=== PATIENT | male | born 1950 | race Caucasian/White ===

== ENCOUNTER 2019-11-24 15:19 | Inpatient (IN) | payer OTHER, MEDICARE ==
[2019-11-24] MEDS ORDERED: Sodium Chloride 0.9% 10 ML Syringe FLUSH PRN (15:45)
[2019-11-24] MEDS ORDERED: Albuterol/Ipratropium 3.0-0.5 MG/3 ML Neb Soln NEB ONE (15:47)
[2019-11-24] MEDS ORDERED: Acetaminophen 325 MG Tab PO ONE (15:47)
--- NOTE | 2019-11-24 15:55 | EDM.PDOC ---
ED HPI GENERAL MEDICAL PROBLEM - General Chief Complaint: Respiratory Problem Stated Complaint: SOB Time Seen by Provider: 11/24/19 15:35 Source of Information: Reports: Patient, RN Notes Reviewed History Limitations: Reports: No Limitations - History of Present Illness INITIAL COMMENTS - FREE TEXT/NARRATIVE: Patient is a 69-year-old male who presents to the ED for evaluation of his increasing shortness of breath. Patient notes for the past couple days, he has had a productive cough, of some brown/green phlegm. He notes that his right chest does hurt quite a bit from coughing. He is having body aches, fevers/ chills, poor appetite, generalized lethargy, and sleeping very poorly due to the cough. He states he did get a flu shot this year. He has been taking the Mucinex and some aspirin which does help the body aches. Patient states that he comes to the ER for management as he just cannot catch his air. His oxygen level is 85% on room air, and O2 at 2 L were applied at time of triage and this did bring him up to the low 90s. Patient states his primary care provider is normally through the [facility], but he does have a few outside care providers. He used to go to [facility] but she is left this practice. He states he has not seen anyone in a while. Patient states he has a history of asthma and COPD, and does take albuterol and Symbicort on a regular basis. Right Chest Pain Score (Numeric/FACES): 4 - Related Data Allergies Allergy/AdvReac Type Severity Reaction Status Date / Time No Known Allergies Allergy Verified 11/24/19 15:33 Home Meds: Home Meds Albuterol [Proventil HFA] 6.7 gm INH Q2H PRN 10/14/16 [History] Budesonide/Formoterol Fumarate [Symbicort 160-4.5 Mcg Inhaler] 2 puff INH BID [History] Omeprazole 20 mg PO DAILY 11/24/19 [History] amLODIPine Besylate [Amlodipine Besylate] 10 mg PO DAILY 11/24/19 [History] Past Medical History HEENT History: Reports: Impaired Vision Other HEENT History: glasses Cardiovascular History: Reports: Hypertension Respiratory History: Reports: Asthma, COPD Musculoskeletal History: Reports: Back Pain, Chronic Neurological History: Reports: Migraines - Past Surgical History GI Surgical History: Reports: Cholecystectomy Social & Family History - Family History Family Medical History: Noncontributory - Tobacco Use Smoking Status *Q: Current Every Day Smoker Years of Tobacco use: 30 Packs/Tins Daily: 0.2 - Caffeine Use Caffeine Use: Reports: Coffee - Recreational Drug Use Recreational Drug Use: No ED ROS GENERAL - Review of Systems Review Of Systems: See Below Constitutional: Reports: Fever, Chills, Malaise, Fatigue, Decreased Appetite Respiratory: Reports: Shortness of Breath, Cough, Sputum Cardiovascular: Reports: Chest Pain GI/Abdominal: Denies: Abdominal Pain, Constipation, Diarrhea, Nausea, Vomiting Skin: Reports: Change in Color (mildly generalized dusky appearance ) Neurological: Denies: Headache ED EXAM, GENERAL - Physical Exam Exam: See Below Exam Limited By: No Limitations General Appearance: Alert, WD/WN, Mild Distress (pt is talking in broken sentences) Ears: Normal External Exam Nose: Normal Inspection Throat/Mouth: Normal Inspection, Normal Lips, Normal Teeth, Normal Gums, Normal Oropharynx, Normal Voice, No Airway Compromise Head: Atraumatic, Normocephalic Neck: Normal Inspection Respiratory/Chest: Respiratory Distress (mild, speaking in broken sentences), Decreased Breath Sounds (diffuse bilaterally), Retractions (sub sternal retractions, bilaterally) Cardiovascular: Normal Peripheral Pulses, Regular Rate, Rhythm, No Edema, No Murmur Peripheral Pulses: 3+: Radial (L), Radial (R) Extremities: Normal Inspection, Slow Capillary Refill (slightly decreased cap refill) Neurological: Alert, Oriented, Normal Cognition, No Motor/Sensory Deficits Psychiatric: Normal Affect, Normal Mood Skin Exam: Warm, Dry, Intact, No Rash, Cyanosis (generalized mild dusky appearance) Course - Vital Signs Last Recorded V/S: Last Vital Signs Temp 100.1 F 11/24/19 16:43 Pulse 104 H 11/24/19 16:43 Resp 22 H 11/24/19 16:43 BP 124/76 11/24/19 16:43 Pulse Ox 92 L 11/24/19 19:56 - Orders/Labs/Meds Orders: Active Orders 24 hr Category Date Time Status Patient Status [ADT] Routine ADT 11/24/19 19:33 Active Height and Weight [RC] DAILY Care 11/24/19 19:16 Active Intake and Output [RC] QSHIFT Care 11/24/19 19:18 Active Oxygen Therapy [RC] PRN Care 11/24/19 19:16 Active Peripheral IV Care [RC] . DIRECTED Care 11/24/19 15:46 Active Pulse Oximetry [RC] Q4HR Care 11/24/19 19:18 Active RT Aerosol Therapy [RC] ASDIRECTED Care 11/24/19 15:47 Active Up With Assistance [RC] ASDIRECTED Care 11/24/19 19:16 Active VTE/DVT Education [RC] PER UNIT ROUTINE Care 11/24/19 19:16 Active Vital Signs [RC] Q4H Care 11/24/19 19:16 Active OT Evaluation and Treatment [CONS] Routine Cons 11/24/19 19:16 Active PT Evaluation and Treatment [CONS] Routine Cons 11/24/19 19:16 Active Regular Diet [DIET] Diet 11/25/19 Breakfast Active Chest 2V [CR] Stat Exams 11/24/19 15:36 Taken BASIC METABOLIC PANEL,BMP [CHEM] AM Lab 11/25/19 05:11 Ordered CBC WITH AUTO DIFF [HEME] AM Lab 11/25/19 05:11 Ordered MAGNESIUM [CHEM] AM Lab 11/25/19 05:11 Ordered PHOSPHORUS [CHEM] AM Lab 11/25/19 05:11 Ordered PROCALCITONIN [REF] Q48H Lab 11/24/19 15:55 Received PROCALCITONIN [REF] Q48H Lab 11/26/19 19:16 Ordered PROCALCITONIN [REF] Q48H Lab 11/28/19 19:16 Ordered RESPIRATORY PANEL PCR [MREF] Stat Lab 11/24/19 19:16 Ordered STREP PNEUMONIAE ANTIGEN [MREF] Stat Lab 11/24/19 19:16 Ordered Acetaminophen [Tylenol] Med 11/24/19 19:16 Active 650 mg PO Q4H PRN Albuterol/Ipratropium [DuoNeb 3.0-0.5 MG/3 ML] Med 11/24/19 19:30 Active 3 ml NEB Q2H Azithromycin [Zithromax] 500 mg Med 11/24/19 19:30 Active Sodium Chloride 0.9% [Normal Saline] 250 ml IV Q24H Benzonatate [Tessalon Perles] Med 11/24/19 21:00 Active 100 mg PO TID Budesonide [Pulmicort] Med 11/24/19 21:00 Active 0.5 mg NEB BIDRT Enoxaparin [Lovenox] Med 11/25/19 09:00 Active 40 mg SUBCUT DAILY Nicotine [Habitrol] Med 11/25/19 09:00 Active 21 mg TRDERM DAILY Ondansetron [Zofran ODT] Med 11/24/19 19:16 Active 4 mg PO Q6H PRN Ondansetron [Zofran] Med 11/24/19 19:16 Active 4 mg IV Q6H PRN Sodium Chloride 0.9% [Saline Flush] Med 11/24/19 15:45 Active 10 ml FLUSH ASDIRECTED PRN cefTRIAXone [Rocephin] 2 gm Med 11/24/19 20:30 Active Sodium Chloride 0.9% [Normal Saline] 100 ml IV Q24H guaiFENesin [Mucinex] Med 11/24/19 21:00 Active 600 mg PO TID hydrALAZINE [Apresoline] Med 11/24/19 19:43 Active 10 mg IVPUSH Q2H PRN methylPREDNISolone Sod Succ [Solu-MEDROL] Med 11/24/19 22:00 Active 80 mg IVPUSH Q8H Isolation [COMM] Routine Oth 11/24/19 15:37 Ordered Peripheral IV Insertion Adult [OM.PC] Stat Oth 11/24/19 15:45 Ordered Resuscitation Status Routine Resus Stat 11/24/19 19:16 Ordered Medication Orders Acetaminophen (Tylenol) 650 mg PO Q4H PRN PRN Reason: Pain (Mild 1-3)/fever Albuterol/Ipratropium (Duoneb 3.0-0.5 Mg/3 Ml) 3 ml NEB Q2H KURT Stop: 11/25/19 05:31 Last Admin: 11/24/19 19:55 Dose: 3 ml Benzonatate (Tessalon Perles) 100 mg PO TID K[facility]T Budesonide (Pulmicort) 0.5 mg NEB BIDRT [facility] Enoxaparin Sodium (Lovenox) 40 mg SUBCUT DAILY K[facility] Guaifenesin (Mucinex) 600 mg PO TID [facility] Hydralazine HCl (Apresoline) 10 mg IVPUSH Q2H PRN PRN Reason: Hypertension Azithromycin 500 mg/ Sodium (Chloride) 250 mls @ 250 mls/hr IV Q24H [facility] Stop: 11/28/19 20:29 Ceftriaxone Sodium 2 gm/ (Sodium Chloride) 100 mls @ 200 mls/hr IV Q24H [facility] Methylprednisolone Sodium Succinate (Solu-Medrol) 80 mg IVPUSH Q8H [facility] Nicotine (Habitrol) 21 mg TRDERM DAILY [facility] Ondansetron HCl (Zofran Odt) 4 mg PO Q6H PRN PRN Reason: nausea, able to take PO Ondansetron HCl (Zofran) 4 mg IV Q6H PRN PRN Reason: Nausea/Vomiting Sodium Chloride (Saline Flush) 10 ml FLUSH ASDIRECTED PRN PRN Reason: Keep Vein Open Last Admin: 11/24/19 16:08 Dose: 10 ml Labs: Laboratory Tests 11/24/19 11/24/19 11/24/19 Range/Units 15:55 15:55 15:55 WBC 11.04 H (4.23-9.07) K/mm3 RBC 4.98 (4.63-6.08) M/mm3 Hgb 14.3 D (13.7-17.5) gm/dl Hct 43.0 (40.1-51.0) % MCV 86.3 (79.0-92.2) fl MCH 28.7 (25.7-32.2) pg MCHC 33.3 (32.2-35.5) g/dl RDW Std Deviation 41.9 (35.1-43.9) fL Plt Count 217 (163-337) K/mm3 MPV 10.0 (9.4-12.3) fl Neutrophils % (Manual) 84 H (40-60) % Band Neutrophils % 2 (0-10) % Lymphocytes % (Manual) 5 L (20-40) % Atypical Lymphs % 0 % Monocytes % (Manual) 9 (2-10) % Eosinophils % (Manual) 0 L (0.8-7.0) % Basophils % (Manual) 0 L (0.2-1.2) Toxic Granulation 1+ slight Platelet Estimate Adequate RBC Morph Comment Normal Puncture Site ABG pH (7.35-7.45) ABG pCO2 (35.0-45.0) mmHg ABG pO2 (80.0-100.0) mmHg ABG HCO3 (22.0-26.0) meq/L ABG O2 Saturation (96.0-97.0) % ABG Base Excess (-2-2.0) Ignacio Test A-a Gradient mmHg O2 Delivery Device FiO2 (21.00-100.00) % Sodium 135 L (136-145) mEq/L Potassium 4.0 (3.5-5.1) mEq/L Chloride 99 (98-107) mEq/L Carbon Dioxide 26 (21-32) mEq/L Anion Gap 14.0 (5-15) BUN 25 H (7-18) mg/dL Creatinine 1.4 H (0.7-1.3) mg/dL Est Cr Clr Drug Dosing 55.43 mL/min Estimated GFR (MDRD) 50 (>60) mL/min BUN/Creatinine Ratio 17.9 (14-18) Glucose 108 (80-115) mg/dL Lactic Acid (0.4-2.0) mmol/L Calcium 9.5 (8.5-10.1) mg/dL Total Bilirubin 0.7 (0.2-1.0) mg/dL AST 63 H (15-37) U/L ALT 63 (16-63) U/L Alkaline Phosphatase 98 (46-116) U/L Total Protein 7.9 (6.4-8.2) g/dl Albumin 3.1 L (3.4-5.0) g/dl Globulin 4.8 gm/dL Albumin/Globulin Ratio 0.7 L (1-2) Mycoplasma pneumon IgM Negative (NEGATIVE) 11/24/19 11/24/19 Range/Units 17:49 18:54 WBC (4.23-9.07) K/mm3 RBC (4.63-6.08) M/mm3 Hgb (13.7-17.5) gm/dl Hct (40.1-51.0) % MCV (79.0-92.2) fl MCH (25.7-32.2) pg MCHC (32.2-35.5) g/dl RDW Std Deviation (35.1-43.9) fL Plt Count (163-337) K/mm3 MPV (9.4-12.3) fl Neutrophils % (Manual) (40-60) % Band Neutrophils % (0-10) % Lymphocytes % (Manual) (20-40) % Atypical Lymphs % % Monocytes % (Manual) (2-10) % Eosinophils % (Manual) (0.8-7.0) % Basophils % (Manual) (0.2-1.2) Toxic Granulation Platelet Estimate RBC Morph Comment Puncture Site Rt radial ABG pH 7.44 (7.35-7.45) ABG pCO2 35.4 (35.0-45.0) mmHg ABG pO2 51.0 L (80.0-100.0) mmHg ABG HCO3 23.3 (22.0-26.0) meq/L ABG O2 Saturation 82.3 L (96.0-97.0) % ABG Base Excess 0.0 (-2-2.0) Ignacio Test Positive A-a Gradient 55 mmHg O2 Delivery Device Room air FiO2 21.00 (21.00-100.00) % Sodium (136-145) mEq/L Potassium (3.5-5.1) mEq/L Chloride (98-107) mEq/L Carbon Dioxide (21-32) mEq/L Anion Gap (5-15) BUN (7-18) mg/dL Creatinine (0.7-1.3) mg/dL Est Cr Clr Drug Dosing mL/min Estimated GFR (MDRD) (>60) mL/min BUN/Creatinine Ratio (14-18) Glucose (80-115) mg/dL Lactic Acid 0.7 (0.4-2.0) mmol/L Calcium (8.5-10.1) mg/dL Total Bilirubin (0.2-1.0) mg/dL AST (15-37) U/L ALT (16-63) U/L Alkaline Phosphatase (46-116) U/L Total Protein (6.4-8.2) g/dl Albumin (3.4-5.0) g/dl Globulin gm/dL Albumin/Globulin Ratio (1-2) Mycoplasma pneumon IgM (NEGATIVE) Meds: Medications Generic Name Dose Route Start Last Admin Trade Name Freq PRN Reason Stop Dose Admin Acetaminophen 650 mg 11/24/19 19:16 Tylenol PO Q4H PRN Pain (Mild 1-3)/fever Albuterol/Ipratropium 3 ml 11/24/19 19:30 11/24/19 19:55 Duoneb 3.0-0.5 Mg/3 Ml NEB 11/25/19 05:31 3 ml Q2H [facility] Administration Benzonatate 100 mg 11/24/19 21:00 Tessalon Perles PO TID [facility] Budesonide 0.5 mg 11/24/19 21:00 Pulmicort NEB BIDRT [facility] Enoxaparin Sodium 40 mg 11/25/19 09:00 Lovenox SUBCUT DAILY [facility] Guaifenesin 600 mg 11/24/19 21:00 Mucinex PO TID [facility] Hydralazine HCl 10 mg 11/24/19 19:43 Apresoline IVPUSH Q2H PRN Hypertension Azithromycin 500 mg/ Sodium 250 mls @ 250 mls/hr 11/24/19 19:30 Chloride IV 11/28/19 20:29 Q24H [facility] Ceftriaxone Sodium 2 gm/ 100 mls @ 200 mls/hr 11/24/19 20:30 Sodium Chloride IV Q24H [facility] Methylprednisolone Sodium Succinate 80 mg 11/24/19 22:00 Solu-Medrol IVPUSH Q8H [facility] Nicotine 21 mg 11/25/19 09:00 Habitrol TRDERM DAILY [facility] Ondansetron HCl 4 mg 11/24/19 19:16 Zofran Odt PO Q6H PRN nausea, able to take PO Ondansetron HCl 4 mg 11/24/19 19:16 Zofran IV Q6H PRN Nausea/Vomiting Sodium Chloride 10 ml 11/24/19 15:45 11/24/19 16:08 Saline Flush FLUSH 10 ml ASDIRECTED PRN Administration Keep Vein Open Discontinued Medications Generic Name Dose Route Start Last Admin Trade Name Freq PRN Reason Stop Dose Admin Acetaminophen 975 mg 11/24/19 15:47 11/24/19 15:52 Tylenol PO 11/24/19 15:48 975 mg NOW ONE Administration Albuterol/Ipratropium 3 ml 11/24/19 15:47 11/24/19 15:58 Duoneb 3.0-0.5 Mg/3 Ml NEB 11/24/19 15:48 3 ml ONETIME ONE Administration Methylprednisolone Sodium 250.64 mls @ 250.64 mls/hr 11/24/19 22:00 Succinate 80 mg/ Sodium IV Chloride Q8HR [facility] - Re-Assessments/Exams Free Text/Narrative Re-Assessment/Exam: 11/24/19 15:56 Patient presents to the ED for evaluation of his ongoing shortness of breath. Influenza swab will be obtained, CBC, CMP, chest x-ray, nebulizer and 975mg of Tylenol be given for further management. 11/24/19 17:39 Laboratory evaluation demonstrates a modestly elevated white count 11.04. 84% neutrophils 2% bands which is a left shift. Chest x-ray demonstrates no consolidation or infiltrates in nature. Influenza screen was negative. Patient states that the nebulizer did help, and he is still 90% on 2 L. I did take oxygen off this time and will do a room air ABG for further evaluation. Suspect the patient will likely be hypoxemic, and will need hospital admission for COPD exacerbation. Departure - Departure Time of Disposition: 18:32 Disposition: Admitted As Inpatient 67 Condition: Fair Clinical Impression: COPD exacerbation, Hypoxemia - Discharge Information *PRESCRIPTION DRUG MONITORING PROGRAM REVIEWED*: No *COPY OF PRESCRIPTION DRUG MONITORING REPORT IN PATIENT JUSTIN: No Sepsis Event Note - Evaluation Sepsis Screening Result: Possible Sepsis Risk - Focused Exam Vital Signs: Vital Signs Temp Temp Pulse Resp BP Pulse Ox Pulse Ox 11/24/19 19:56 92 L 11/24/19 16:43 100.1 F 104 H 22 H 124/76 90 L 11/24/19 16:16 100.3 F 102 H 22 H 139/87 90 L 11/24/19 15:58 91 L 11/24/19 15:52 101.1 F H 11/24/19 15:28 100.9 F H 119 H 13 127/72 85 L Date Exam was Performed: 11/24/19 Time Exam was Performed: 21:00 - My Orders Last 24 Hours: My Active Orders 11/24/19 15:36 Chest 2V [CR] Stat 11/24/19 15:37 Isolation [COMM] Routine 11/24/19 15:45 Sodium Chloride 0.9% [Saline Flush] 10 ml FLUSH ASDIRECTED PRN Peripheral IV Insertion Adult [OM.PC] Stat 11/24/19 15:46 Peripheral IV Care [RC] . DIRECTED 11/24/19 15:47 RT Aerosol Therapy [RC] ASDIRECTED - Assessment/Plan Last 24 Hours: My Active Orders 11/24/19 15:36 Chest 2V [CR] Stat 11/24/19 15:37 Isolation [COMM] Routine 11/24/19 15:45 Sodium Chloride 0.9% [Saline Flush] 10 ml FLUSH ASDIRECTED PRN Peripheral IV Insertion Adult [OM.PC] Stat 11/24/19 15:46 Peripheral IV Care [RC] . DIRECTED 11/24/19 15:47 RT Aerosol Therapy [RC] ASDIRECTED
[2019-11-24] MEDS ORDERED: Ondansetron 4 MG Tab.DIS PO PRN (19:16)
[2019-11-24] MEDS ORDERED: Ondansetron 4 MG/2 ML SDV IV PRN (19:16)
[2019-11-24] MEDS ORDERED: Acetaminophen 325 MG Tab PO PRN (19:16)
--- NOTE | 2019-11-24 19:28 | PCM.HP.2 ---
H&P History of Present Illness - General Date of Service: 11/24/19 Admit Problem/Dx: Admission Diagnosis/Problem Admission Diagnosis/Problem COPD with acute lower respiratory infection - History of Present Illness Initial Comments - Free Text/Narative: This is a 69 year old male with past medical history of HTN and COPD who comes to the ED complaining of worsening shortness of breath for 5 days As per patient he was in his usual state of health until 5 days ago when he started having intermittent fevers, associated with coughing spells, shortness of breath, chest pain, malaise and anorexia. Initially he tried to " wait it out" to see if it would resolve on its own, however once it didn't he decided to come to the ED for further evaluation. He denies any sick contacts. Did get the flu shot. Not smoked in 2 weeks. Right Chest Pain Score (Numeric/FACES): 4 - Related Data Allergies/Adverse Reactions: Allergies Allergy/AdvReac Type Severity Reaction Status Date / Time No Known Allergies Allergy Verified 11/24/19 15:33 Home Medications: Home Meds Albuterol [Proventil HFA] 6.7 gm INH Q2H PRN 10/14/16 [History] Budesonide/Formoterol Fumarate [Symbicort 160-4.5 Mcg Inhaler] 2 puff INH BID [History] Omeprazole 20 mg PO DAILY 11/24/19 [History] amLODIPine Besylate [Amlodipine Besylate] 10 mg PO DAILY 11/24/19 [History] Past Medical History HEENT History: Reports: Impaired Vision Other HEENT History: glasses Cardiovascular History: Reports: Hypertension Respiratory History: Reports: Asthma, COPD Musculoskeletal History: Reports: Back Pain, Chronic Neurological History: Reports: Migraines - Past Surgical History GI Surgical History: Reports: Cholecystectomy Social & Family History - Family History Family Medical History: Noncontributory - Tobacco Use Smoking Status *Q: Current Every Day Smoker Years of Tobacco use: 30 Packs/Tins Daily: 0.2 - Caffeine Use Caffeine Use: Reports: Coffee - Recreational Drug Use Recreational Drug Use: No H&P Review of Systems - Review of Systems: Review Of Systems: See Below General: Reports: Fever, Chills, Malaise, Weakness, Fatigue, Decreased Appetite , Weight Loss. Denies: Diaphoresis, Weight Gain HEENT: Reports: Rhinitis, Sinus Congestion. Denies: Headaches, Hearing Changes , Post Nasal Drip, Sore Throat, Vertigo, Visual Changes Pulmonary: Reports: Shortness of Breath, Wheezing, Pleuritic Chest Pain, Cough, Sputum. Denies: Hemoptysis Cardiovascular: Reports: Chest Pain, Palpitations, Dyspnea on Exertion, Orthopnea, PND. Denies: Edema, Lightheadedness, Syncope, Claudication Gastrointestinal: Reports: Anorexia. Denies: Abdominal Pain, Constipation, Diarrhea, Decreased Appetite, Difficulty Swallowing, Distension, Flatus, Nausea , Vomiting Genitourinary: Denies: Dysuria, Frequency, Burning, Pain, Urgency Musculoskeletal: Denies: Muscle Pain, Muscle Stiffness Skin: Reports: Diaphoresis. Denies: Cyanosis, Jaundice, Mottled, Pallor Psychiatric: Denies: Confusion, Mood Lability Neurological: Denies: Dizziness, Headache, Numbness Exam - Exam Exam: See Below - Vital Signs Vital Signs: Last Vital Signs Temp 100.1 F 11/24/19 16:43 Pulse 104 H 11/24/19 16:43 Resp 22 H 11/24/19 16:43 BP 124/76 11/24/19 16:43 Pulse Ox 90 L 11/24/19 16:43 Weight: 88.451 kg - Exam Quality Assessment: Supplemental Oxygen General: Alert, Oriented, Cooperative, Moderate Distress HEENT: Conjunctiva Clear, EOMI, Hearing Intact, Mucosa Moist & [place], Nares Patent, Pupils Equal, Pupils Reactive Neck: Supple, Trachea Midline, +2 Carotid Pulse wo Bruit, Full Range of Motion. No: Lymphadenopathy Lungs: Decreased Breath Sounds, Crackles, Wheezing. No: Rales, Rhonchi Cardiovascular: Regular Rate, Regular Rhythm. No: Systolic Murmur, Diastolic Murmur, Rubs, Gallop/S3, Gallop/S4 GI/Abdominal Exam: Normal Bowel Sounds, Soft, Non-Tender, No Organomegaly. No: Distended, Guarding, Rigid, Rebound Back Exam: Normal Inspection, Full Range of Motion. No: CVA Tenderness (L), CVA Tenderness (R), Paraspinal Tenderness, Vertebral Tenderness Extremities: Normal Inspection, Normal Range of Motion, Non-Tender, No Pedal Edema, Slow Capillary Refill Skin: Warm, Dry Neuro Extensive - Mental Status: Alert, Oriented x3 Psychiatric: Alert - Patient Data Result Diagrams: 11/24/19 15:55 11/24/19 15:55 Sepsis Event Note - Evaluation Sepsis Screening Result: Possible Sepsis Risk - Focused Exam Vital Signs: Vital Signs Temp Temp Pulse Resp BP Pulse Ox Pulse Ox 11/24/19 16:43 100.1 F 104 H 22 H 124/76 90 L 11/24/19 16:16 100.3 F 102 H 22 H 139/87 90 L 11/24/19 15:58 91 L 11/24/19 15:52 101.1 F H 11/24/19 15:28 100.9 F H 119 H 13 127/72 85 L Date Exam was Performed: 11/24/19 Time Exam was Performed: 19:31 - Problem List (1) Acute hypoxemic respiratory failure SNOMED Code(s): 709823770 ICD Code: J96.01 - ACUTE RESPIRATORY FAILURE WITH HYPOXIA Status: Acute Current Visit: Yes (2) GERD (gastroesophageal reflux disease) SNOMED Code(s): 019622952 ICD Code: K21.9 - GASTRO-ESOPHAGEAL REFLUX DISEASE WITHOUT ESOPHAGITIS Status: Acute Current Visit: Yes (3) Hypertension SNOMED Code(s): 09137917 ICD Code: I10 - ESSENTIAL (PRIMARY) HYPERTENSION Status: Acute Current Visit: Yes (4) Bereavement SNOMED Code(s): 71138602 ICD Code: Z63.4 - DISAPPEARANCE AND OF FAMILY MEMBER Status: Acute Current Visit: Yes (5) Leukocytosis SNOMED Code(s): 550543727, 249019794 ICD Code: D72.829 - ELEVATED WHITE BLOOD CELL COUNT, UNSPECIFIED Status: Acute Current Visit: Yes (6) Chronic kidney disease (CKD), stage III (moderate) SNOMED Code(s): 390143844 ICD Code: N18.3 - CHRONIC KIDNEY DISEASE, STAGE 3 (MODERATE) Status: Acute Current Visit: Yes (7) Fever SNOMED Code(s): 032904031 ICD Code: R50.9 - FEVER, UNSPECIFIED Status: Acute Current Visit: Yes (8) COPD exacerbation SNOMED Code(s): 624078553 ICD Code: J44.1 - CHRONIC OBSTRUCTIVE PULMONARY DISEASE W (ACUTE) EXACERBATION Status: Acute Current Visit: No (9) Tachycardia SNOMED Code(s): 9064044 ICD Code: R00.0 - TACHYCARDIA, UNSPECIFIED Status: Acute Current Visit: Yes Problem List Initiated/Reviewed/Updated: Yes Assessment/Plan Comment:: (1) Pneumonia COPD exacerbation Acute hypoxemic respiratory failure Leukocytosis with neutrophilia + fever Smoker Worsening SOB x 5 days + fever + leukocytosis On Spiriva and albuterol PRN at home SatO2 85% on RA--> up to 90% on 2L PLAN - Procalcitonin - Lactic acid - Respiratory panel - Strep pneumo antigen - Scheduled DuoNeb q2h - Scheduled Solumedrol - Scheduled Tessalon Perles and guaifenesin - Scheduled budesonide - Nicotine patch - Hold home Spiriva and albuterol Hypertension BP on admission 127/72 PLAN - Reconcile home meds once available - PRN hydralazine Acute vs acute on Chronic kidney disease (CKD), stage III (moderate) Mild hyponatremia Unknown baseline GFR GFR on admission 50 Na 135 PLAN - Monitor urine output - Renally dosed medications - Avoid nephrotoxic medications - Repeat labs in AM - NS x1L Bereavement in fall Refers he still has a very hard time with it, but is better in comparison Her birthday was recently PLAN - Spiritual care consult PROPHYLAXIS DVT- Lovenox GI- pantoprazole CODE STATUS: FULL CODE DISPOSITION: Patient will be admitted to the medical floor for oxygen supplementation, IV antibiotics and scheduled RT. SOCIAL: Is from home alone, in fall Sons live in [place] Independent on ADLs and IADLs - Mortality Measure Prognosis:: Good
[2019-11-24] MEDS ORDERED: hydrALAZINE 20 MG/ML SDV IVPUSH PRN (19:43)
[2019-11-24] MEDS: Albuterol/Ipratropium 3.0-0.5 MG/3 ML Neb Soln NEB SCH ×3 (19:55→23:48)
[2019-11-24] MEDS ORDERED: cefTRIAXone 2 GM in Sodium Chloride 0.9% 100 ML IV SCH (20:30)
[2019-11-24] MEDS: guaiFENesin 600 MG Tab.ER PO SCH (21:33)
[2019-11-24] MEDS: Benzonatate 100 MG Cap PO SCH (21:33)
[2019-11-24] MEDS: methylPREDNISolone Sodium Succinate 125 MG/2 ML SDV IVPUSH SCH (21:40)
[2019-11-24] MEDS: Azithromycin 500 MG in Sodium Chloride 0.9% 250 ML IV SCH (21:42)
[2019-11-24] MEDS: Budesonide 0.5 MG/2 ML Neb Susp NEB SCH (21:50)
[2019-11-24] MEDS ORDERED: METHYLPREDNISOLONE SOD SUCC IV SCH (22:00)
[2019-11-24] MEDS ORDERED: SODIUM CHLORIDE 0.9% IV SCH (22:00)
[2019-11-25] MEDS: Albuterol/Ipratropium 3.0-0.5 MG/3 ML Neb Soln NEB SCH ×5 (01:12→22:01)
[2019-11-25] MEDS: Budesonide 0.5 MG/2 ML Neb Susp NEB SCH ×2 (05:01→22:01)
[2019-11-25] MEDS: methylPREDNISolone Sodium Succinate 125 MG/2 ML SDV IVPUSH SCH ×3 (05:57→21:28)
--- NOTE | 2019-11-25 07:36 | CR ---
Chest: PA and lateral views of the chest were obtained. Comparison: Previous chest x-ray of 10/14/16. Mild increased central lung markings are seen having the appearance of diffuse bronchitis. Lungs otherwise are clear but hyperinflated. Heart size and mediastinum are within normal limits. Bony structures appear within normal limits. Impression: 1. Findings suspicious for diffuse bronchitis. 2. Emphysematous change. Diagnostic code #3 This report was dictated in MDT
[2019-11-25] MEDS: guaiFENesin 600 MG Tab.ER PO SCH ×3 (08:16→21:27)
[2019-11-25] MEDS: Benzonatate 100 MG Cap PO SCH ×3 (08:16→21:27)
[2019-11-25] MEDS: Enoxaparin 40 MG/0.4 ML Syringe SUBCUT SCH (08:16)
[2019-11-25] MEDS: Nicotine 21 MG/24 Hr Patch TRDERM SCH (08:23)
--- NOTE | 2019-11-25 18:23 | PCM.PN ---
- General Info Date of Service: 11/25/19 Subjective Update: Feeling better BM 11/21 Tolerating diet Slept OK - Patient Data Vitals - Most Recent: Last Vital Signs Temp 97.9 F 11/25/19 15:43 Pulse 73 11/25/19 15:43 Resp 20 11/25/19 15:43 BP 101/74 11/25/19 15:43 Pulse Ox 90 L 11/25/19 15:43 Weight - Most Recent: 88.904 kg - Exam Quality Assessment: Supplemental Oxygen General: Alert, Oriented, Cooperative, No Acute Distress HEENT: Pupils Equal, Pupils Reactive, EOMI, Mucous Membr. Moist/[place] Neck: Supple, Trachea Midline, No JVD, No Thyromegaly, +2 Carotid Pulse wo Bruit. No: Lymphadenopathy Lungs: Decreased Breath Sounds, Crackles, Rales, Wheezing. No: Rhonchi, Rub Cardiovascular: Regular Rate, Regular Rhythm. No: Murmurs, Gallops, Rubs GI/Abdominal Exam: Normal Bowel Sounds, Soft, Non-Tender, No Organomegaly. No: Distended, Guarding, Rigid, Rebound Back Exam: Normal Inspection. No: CVA Tenderness (L), CVA Tenderness (R), Paraspinal Tenderness, Vertebral Tenderness Extremities: Normal Inspection, Normal Range of Motion, Non-Tender, No Pedal Edema, Slow Capillary Refill Neurological: No New Focal Deficit Sepsis Event Note - Evaluation Sepsis Screening Result: No Definite Risk - Focused Exam Vital Signs: Vital Signs Temp Pulse Resp BP Pulse Ox Pulse Ox 11/25/19 15:43 97.9 F 73 20 101/74 90 L 11/25/19 13:47 93 L 11/25/19 12:11 84 91 L 11/25/19 11:33 71 94 L 11/25/19 11:27 97.7 F 63 20 111/92 H 95 11/25/19 08:13 97.9 F 66 20 104/67 93 L Date Exam was Performed: 11/26/19 Time Exam was Performed: 18:11 - Problem List & Annotations (1) Acute hypoxemic respiratory failure SNOMED Code(s): 880939611 Code(s): J96.01 - ACUTE RESPIRATORY FAILURE WITH HYPOXIA Status: Acute Current Visit: Yes (2) GERD (gastroesophageal reflux disease) SNOMED Code(s): 378465386 Code(s): K21.9 - GASTRO-ESOPHAGEAL REFLUX DISEASE WITHOUT ESOPHAGITIS Status: Acute Current Visit: Yes (3) Hypertension SNOMED Code(s): 65535547 Code(s): I10 - ESSENTIAL (PRIMARY) HYPERTENSION Status: Acute Current Visit: Yes (4) Bereavement SNOMED Code(s): 44292934 Code(s): Z63.4 - DISAPPEARANCE AND OF FAMILY MEMBER Status: Acute Current Visit: Yes (5) Leukocytosis SNOMED Code(s): 401358733, 227549391 Code(s): D72.829 - ELEVATED WHITE BLOOD CELL COUNT, UNSPECIFIED Status: Acute Current Visit: Yes (6) Chronic kidney disease (CKD), stage III (moderate) SNOMED Code(s): 496070290 Code(s): N18.3 - CHRONIC KIDNEY DISEASE, STAGE 3 (MODERATE) Status: Acute Current Visit: Yes (7) Fever SNOMED Code(s): 932051370 Code(s): R50.9 - FEVER, UNSPECIFIED Status: Acute Current Visit: Yes (8) COPD exacerbation SNOMED Code(s): 217860916 Code(s): J44.1 - CHRONIC OBSTRUCTIVE PULMONARY DISEASE W (ACUTE) EXACERBATION Status: Acute Current Visit: No (9) Tachycardia SNOMED Code(s): 3690267 Code(s): R00.0 - TACHYCARDIA, UNSPECIFIED Status: Acute Current Visit: Yes (10) Malnutrition SNOMED Code(s): 25303874 Code(s): E46 - UNSPECIFIED PROTEIN-CALORIE MALNUTRITION Status: Acute Current Visit: Yes (11) Hypoalbuminemia SNOMED Code(s): 198883524 Code(s): E88.09 - [facility] DISORDERS OF PLASMA-PROTEIN METABOLISM, NEC Status: Acute Current Visit: Yes - Problem List Review Problem List Initiated/Reviewed/Updated: Yes - Plan Plan:: Pneumonia COPD exacerbation Acute hypoxemic respiratory failure Leukocytosis with neutrophilia + fever Smoker Worsening SOB x 5 days + fever + leukocytosis On Spiriva and albuterol PRN at home SatO2 85% on RA--> up to 90% on 2L on admission Sat > 85%, on 2-3L WBC improved from 11.8-->8.66 Physical exam with interval improvement Lactic acid negative PLAN - Procalcitonin, pending - Respiratory panel, Strep pneumo antigen pending - Change DuoNeb schedule to q4h - Scheduled Solumedrol - Scheduled Tessalon Perles and guaifenesin - Scheduled budesonide - Nicotine patch - Hold home Spiriva and albuterol Hypertension BP on admission 127/72 BP trend 117-142/72-76 PLAN - Continue home meds - PRN hydralazine Acute vs acute on Chronic kidney disease (CKD), stage III (moderate) Mild hyponatremia, resolved Unknown baseline GFR GFR on admission 50 Na 135--> corrected to 139 PLAN - Monitor urine output - Renally dosed medications - Avoid nephrotoxic medications - Repeat labs in AM Malnutrition Patient endorses decreased oral intake Albumin 3.1 PLAN - Consult dietary - Vitamin levels - Prealbumin levels Bereavement in fall Refers he still has a very hard time with it, but is better in comparison Her birthday was recently PLAN - Spiritual care consult PROPHYLAXIS DVT- Lovenox GI- pantoprazole CODE STATUS: FULL CODE DISPOSITION: Patient will remain admitted to the medical floor for oxygen supplementation, IV antibiotics and scheduled RT. SOCIAL: Is from home alone, in fall Sons live in [place] Independent on ADLs and IADLs
[2019-11-25] MEDS: Azithromycin 500 MG in Sodium Chloride 0.9% 250 ML IV SCH (21:26)
[2019-11-25] MEDS: cefTRIAXone 2 GM in Sodium Chloride 0.9% 100 ML IV SCH (21:27)
[2019-11-26] MEDS: Albuterol/Ipratropium 3.0-0.5 MG/3 ML Neb Soln NEB SCH ×6 (02:14→21:29)
[2019-11-26] MEDS: methylPREDNISolone Sodium Succinate 125 MG/2 ML SDV IVPUSH SCH ×3 (06:40→21:01)
[2019-11-26] MEDS: Pantoprazole 40 MG Tab.CR PO SCH (06:40)
[2019-11-26] MEDS: Budesonide 0.5 MG/2 ML Neb Susp NEB SCH ×2 (06:53→21:29)
[2019-11-26] MEDS: amLODIPine 10 MG Tab PO SCH (09:10)
[2019-11-26] MEDS: Nicotine 21 MG/24 Hr Patch TRDERM SCH (09:11)
[2019-11-26] MEDS: guaiFENesin 600 MG Tab.ER PO SCH ×3 (09:11→21:02)
[2019-11-26] MEDS: Benzonatate 100 MG Cap PO SCH ×3 (09:11→21:02)
[2019-11-26] MEDS: Enoxaparin 40 MG/0.4 ML Syringe SUBCUT SCH (09:15)
--- NOTE | 2019-11-26 11:15 | PCM.PN ---
- General Info Date of Service: 11/26/19 Subjective Update: BM 11/24 Regular diet, tolerated well Slept so so, asking for something to sleep Ambulating to and from restroom Overall feels a lot better - Patient Data Vitals - Most Recent: Last Vital Signs Temp 97.9 F 11/26/19 08:37 Pulse 96 11/26/19 08:37 Resp 24 H 11/26/19 08:37 BP 107/72 11/26/19 09:10 Pulse Ox 92 L 11/26/19 09:38 Weight - Most Recent: 89.312 kg - Exam Quality Assessment: Supplemental Oxygen General: Alert, Oriented, Cooperative, No Acute Distress HEENT: Pupils Equal, Pupils Reactive, EOMI, Mucous Membr. Moist/[place] Neck: Supple, Trachea Midline, No JVD, No Thyromegaly, +2 Carotid Pulse wo Bruit. No: Lymphadenopathy Lungs: Decreased Breath Sounds, Crackles, Wheezing (end expiratory), Other ( interval improvement). No: Rales, Rhonchi, Rub Cardiovascular: Regular Rate, Regular Rhythm. No: Murmurs, Gallops, Rubs GI/Abdominal Exam: Normal Bowel Sounds, Soft, Non-Tender, No Organomegaly. No: Distended, Guarding, Rigid, Rebound, Tender Back Exam: Normal Inspection. No: CVA Tenderness (L), CVA Tenderness (R), Paraspinal Tenderness, Vertebral Tenderness Extremities: Normal Inspection, Normal Range of Motion, Non-Tender, No Pedal Edema, Slow Capillary Refill Neurological: No New Focal Deficit Sepsis Event Note - Evaluation Sepsis Screening Result: No Definite Risk - Focused Exam Vital Signs: Vital Signs Temp Pulse Resp BP Pulse Ox Pulse Ox 11/26/19 09:38 92 L 11/26/19 09:10 107/72 11/26/19 08:37 97.9 F 96 24 H 107/72 91 L 11/26/19 08:00 92 L 11/26/19 06:55 93 L 11/26/19 04:53 98.1 F 92 18 113/69 92 L 11/26/19 02:17 90 L Date Exam was Performed: 11/26/19 Time Exam was Performed: 18:24 - Problem List & Annotations (1) Acute hypoxemic respiratory failure SNOMED Code(s): 911994024 Code(s): J96.01 - ACUTE RESPIRATORY FAILURE WITH HYPOXIA Status: Acute Current Visit: Yes (2) GERD (gastroesophageal reflux disease) SNOMED Code(s): 493599288 Code(s): K21.9 - GASTRO-ESOPHAGEAL REFLUX DISEASE WITHOUT ESOPHAGITIS Status: Acute Current Visit: Yes (3) Hypertension SNOMED Code(s): 89102017 Code(s): I10 - ESSENTIAL (PRIMARY) HYPERTENSION Status: Acute Current Visit: Yes (4) Bereavement SNOMED Code(s): 44782602 Code(s): Z63.4 - DISAPPEARANCE AND OF FAMILY MEMBER Status: Acute Current Visit: Yes (5) Leukocytosis SNOMED Code(s): 330874357, 382998099 Code(s): D72.829 - ELEVATED WHITE BLOOD CELL COUNT, UNSPECIFIED Status: Acute Current Visit: Yes (6) Chronic kidney disease (CKD), stage III (moderate) SNOMED Code(s): 835751348 Code(s): N18.3 - CHRONIC KIDNEY DISEASE, STAGE 3 (MODERATE) Status: Acute Current Visit: Yes (7) Fever SNOMED Code(s): 258554621 Code(s): R50.9 - FEVER, UNSPECIFIED Status: Acute Current Visit: Yes (8) COPD exacerbation SNOMED Code(s): 574904872 Code(s): J44.1 - CHRONIC OBSTRUCTIVE PULMONARY DISEASE W (ACUTE) EXACERBATION Status: Acute Current Visit: No (9) Tachycardia SNOMED Code(s): 8688552 Code(s): R00.0 - TACHYCARDIA, UNSPECIFIED Status: Acute Current Visit: Yes (10) Pneumonia SNOMED Code(s): 581687769 Code(s): J18.9 - PNEUMONIA, UNSPECIFIED ORGANISM Status: Acute Current Visit: Yes (11) Hypoalbuminemia SNOMED Code(s): 152447881 Code(s): E88.09 - OTH DISORDERS OF PLASMA-PROTEIN METABOLISM, NEC Status: Acute Current Visit: Yes (12) Malnutrition SNOMED Code(s): 02928839 Code(s): E46 - UNSPECIFIED PROTEIN-CALORIE MALNUTRITION Status: Acute Current Visit: Yes (13) Influenza A SNOMED Code(s): 852317066 Code(s): J10.1 - FLU DUE TO OTH IDENT INFLUENZA VIRUS W OTH RESP MANIFEST Status: Acute Current Visit: No - Problem List Review Problem List Initiated/Reviewed/Updated: Yes - Plan Plan:: Bacterial pneumonia superimposed on influenza A infection COPD exacerbation Acute hypoxemic respiratory failure Smoker Worsening SOB x 5 days + fever + leukocytosis--> SatO2 85% on RA--> up to 90% on 2L on admission Sat trend in past 24 h: - > 90%, NC tapered down from 4L-->3L-->2L now WBC improved from 11.8-->8.66 yesterday but up to 15.1 today - Toxic granulation and bands are no longer present - 2/2 steroid use Physical exam continues to improve but still with wheezing Lactic acid negative Respiratory panel + influenza A Strep. pneu negative PLAN - Repeat procalcitonin today - Scheduled - DuoNebs q4h - Budesonide q12h - Tessalon Perles TID - Guaifenesin TID - Solumedrol 80mg Q8h - Azithromycin and Rocephin day 3 - Continue Nicotine patch - Hold home Spiriva and albuterol Hypertension BP on admission 127/72 BP trend 101-145/64-91 PLAN - Continue amlodipine - PRN hydralazine Acute vs acute on Chronic kidney disease (CKD), stage III (moderate) GFR on admission 50--> 43 today PLAN - Monitor urine output - Renally dosed medications - Avoid nephrotoxic medications - Repeat labs in AM - Encourage PO fluid intake Malnutrition Patient endorses decreased oral intake Albumin 3.1 PLAN - Consult dietary - Vitamin levels - Prealbumin levels Bereavement in fall Refers he still has a very hard time with it, but is better in comparison Her birthday was recently PLAN - Spiritual care consult PROPHYLAXIS DVT- Lovenox GI- pantoprazole CODE STATUS: FULL CODE DISPOSITION: Patient will remain admitted to the medical floor for oxygen supplementation, IV antibiotics and scheduled RT. SOCIAL: Is from home alone, in fall Sons live in [place] Independent on ADLs and IADLs
[2019-11-26] MEDS: cefTRIAXone 2 GM in Sodium Chloride 0.9% 100 ML IV SCH (21:01)
[2019-11-26] MEDS: Azithromycin 500 MG in Sodium Chloride 0.9% 250 ML IV SCH (21:01)
[2019-11-26] MEDS: LORazepam 0.5 MG Tab PO SCH (21:02)
[2019-11-27] MEDS: Albuterol/Ipratropium 3.0-0.5 MG/3 ML Neb Soln NEB SCH ×5 (03:00→20:37)
[2019-11-27] MEDS: Pantoprazole 40 MG Tab.CR PO SCH ×2 (05:45→06:38)
[2019-11-27] MEDS: methylPREDNISolone Sodium Succinate 125 MG/2 ML SDV IVPUSH SCH ×3 (05:45→21:13)
[2019-11-27] MEDS: Budesonide 0.5 MG/2 ML Neb Susp NEB SCH ×2 (06:32→20:38)
[2019-11-27] MEDS: amLODIPine 10 MG Tab PO SCH (09:42)
[2019-11-27] MEDS: guaiFENesin 600 MG Tab.ER PO SCH ×2 (09:42→21:14)
[2019-11-27] MEDS: Benzonatate 100 MG Cap PO SCH ×3 (09:43→21:14)
[2019-11-27] MEDS: Enoxaparin 40 MG/0.4 ML Syringe SUBCUT SCH (09:43)
[2019-11-27] MEDS: Nicotine 21 MG/24 Hr Patch TRDERM SCH (09:44)
--- NOTE | 2019-11-27 10:55 | PCM.PN ---
- General Info Date of Service: 11/27/19 Subjective Update: BM yesterday Slept OK Tolerating regular diet Ambulating Room air since last night - Patient Data Vitals - Most Recent: Last Vital Signs Temp 97.9 F 11/27/19 08:01 Pulse 101 H 11/27/19 08:01 Resp 16 11/27/19 08:01 BP 120/80 11/27/19 09:42 Pulse Ox 90 L 11/27/19 10:17 Weight - Most Recent: 89.312 kg - Exam Quality Assessment: No: Supplemental Oxygen General: Alert, Oriented, Cooperative, No Acute Distress HEENT: Pupils Equal, Pupils Reactive, EOMI, Mucous Membr. Moist/[place] Neck: Supple, Trachea Midline, No JVD, No Thyromegaly, +2 Carotid Pulse wo Bruit Lungs: Normal Respiratory Effort, Wheezing (inspiratory and expiratory, interval worsening). No: Crackles, Rales, Rhonchi, Rub, Stridor Cardiovascular: Regular Rate, Regular Rhythm. No: Murmurs, Gallops, Rubs GI/Abdominal Exam: Normal Bowel Sounds, Soft, Non-Tender, No Organomegaly. No: Distended, Guarding, Rigid, Rebound Back Exam: Normal Inspection, Full Range of Motion. No: CVA Tenderness (L), CVA Tenderness (R), Paraspinal Tenderness, Vertebral Tenderness Extremities: Normal Inspection, Normal Range of Motion, Non-Tender, No Pedal Edema, Normal Capillary Refill Peripheral Pulses: 2+: Radial (L), Radial (R), Dorsalis Pedis (L), Dorsalis Pedis (R) Skin: Warm, Dry, Intact Neurological: No New Focal Deficit Psy/Mental Status: Alert, Normal Affect, Normal Mood Sepsis Event Note - Evaluation Sepsis Screening Result: No Definite Risk - Focused Exam Vital Signs: Vital Signs Temp Pulse Resp BP Pulse Ox Pulse Ox 11/27/19 10:17 90 L 11/27/19 09:42 120/80 11/27/19 08:01 97.9 F 101 H 16 120/80 90 L 11/27/19 06:34 91 L 11/27/19 05:43 98.1 F 87 12 121/77 92 L Date Exam was Performed: 11/29/19 Time Exam was Performed: 11:43 - Problem List & Annotations (1) Acute hypoxemic respiratory failure SNOMED Code(s): 705807179 Code(s): J96.01 - ACUTE RESPIRATORY FAILURE WITH HYPOXIA Status: Acute Current Visit: Yes (2) GERD (gastroesophageal reflux disease) SNOMED Code(s): 119298114 Code(s): K21.9 - GASTRO-ESOPHAGEAL REFLUX DISEASE WITHOUT ESOPHAGITIS Status: Acute Current Visit: Yes (3) Hypertension SNOMED Code(s): 91511555 Code(s): I10 - ESSENTIAL (PRIMARY) HYPERTENSION Status: Acute Current Visit: Yes (4) Bereavement SNOMED Code(s): 39228515 Code(s): Z63.4 - DISAPPEARANCE AND OF FAMILY MEMBER Status: Acute Current Visit: Yes (5) Leukocytosis SNOMED Code(s): 745397491, 044643728 Code(s): D72.829 - ELEVATED WHITE BLOOD CELL COUNT, UNSPECIFIED Status: Acute Current Visit: Yes (6) Chronic kidney disease (CKD), stage III (moderate) SNOMED Code(s): 047843815 Code(s): N18.3 - CHRONIC KIDNEY DISEASE, STAGE 3 (MODERATE) Status: Acute Current Visit: Yes (7) Fever SNOMED Code(s): 611542785 Code(s): R50.9 - FEVER, UNSPECIFIED Status: Acute Current Visit: Yes (8) COPD exacerbation SNOMED Code(s): 007329331 Code(s): J44.1 - CHRONIC OBSTRUCTIVE PULMONARY DISEASE W (ACUTE) EXACERBATION Status: Acute Current Visit: No (9) Tachycardia SNOMED Code(s): 8324270 Code(s): R00.0 - TACHYCARDIA, UNSPECIFIED Status: Acute Current Visit: Yes (10) Pneumonia SNOMED Code(s): 598384347 Code(s): J18.9 - PNEUMONIA, UNSPECIFIED ORGANISM Status: Acute Current Visit: Yes (11) Hypoalbuminemia SNOMED Code(s): 653399015 Code(s): E88.09 - OTH DISORDERS OF PLASMA-PROTEIN METABOLISM, NEC Status: Acute Current Visit: Yes (12) Malnutrition SNOMED Code(s): 28675329 Code(s): E46 - UNSPECIFIED PROTEIN-CALORIE MALNUTRITION Status: Acute Current Visit: Yes (13) Influenza A SNOMED Code(s): 397901353 Code(s): J10.1 - FLU DUE TO OTH IDENT INFLUENZA VIRUS W OTH RESP MANIFEST Status: Acute Current Visit: No - Problem List Review Problem List Initiated/Reviewed/Updated: Yes - Plan Plan:: Bacterial pneumonia superimposed on influenza A infection COPD exacerbation Acute hypoxemic respiratory failure Smoker Worsening SOB x 5 days + fever + leukocytosis--> SatO2 85% on RA--> up to 90% on 2L on admission Has maintained O2 Sat > 92% on 1L WBC improved to 15.21 to 13.59--> still improving, neutrophils down in percentage Influenza A positive Procalcitonin elevated PLAN - DuoNebs q8h - Continue Budesonide, Guaifenesin and Tessalon Perles - ATB day 5, last day Hypertension BP on admission 127/72 BP trend 107-138/74-86 PLAN - Continue amlodipine - PRN hydralazine Chronic kidney disease (CKD), stage III (moderate) Acute kidney injury improved GFR on admission 50--> 43 --> 55 yesterday UO 2024--> 84ml/hr Urine output improved PLAN - Monitor urine output - Renally dosed medications - Avoid nephrotoxic medications - Encourage PO fluid intake Malnutrition Patient endorses decreased oral intake Albumin 3.1 Folic acid and B12 normal Prealbumin level low PLAN - Follow up with dietary recommendations Bereavement in fall Refers he still has a very hard time with it, but is better in comparison Her birthday was recently PLAN - Spiritual care consult PROPHYLAXIS DVT- Lovenox GI- pantoprazole CODE STATUS: FULL CODE DISPOSITION: Patient will remain admitted to the medical floor for oxygen supplementation, IV antibiotics and scheduled RT. Length of stay longer than 96 hours due to suboptimal treatment response, likely d/c in AM. SOCIAL: Is from home alone, in fall Sons live in [place] Independent on ADLs and IADLs
[2019-11-27] MEDS: LORazepam 0.5 MG Tab PO SCH (21:13)
[2019-11-27] MEDS: cefTRIAXone 2 GM in Sodium Chloride 0.9% 100 ML IV SCH (21:13)
[2019-11-27] MEDS: Azithromycin 500 MG in Sodium Chloride 0.9% 250 ML IV SCH (21:13)
[2019-11-28] MEDS: Budesonide 0.5 MG/2 ML Neb Susp NEB SCH ×2 (06:22→21:21)
[2019-11-28] MEDS: Albuterol/Ipratropium 3.0-0.5 MG/3 ML Neb Soln NEB SCH ×4 (06:22→21:21)
[2019-11-28] MEDS: Pantoprazole 40 MG Tab.CR PO SCH (06:55)
[2019-11-28] MEDS: methylPREDNISolone Sodium Succinate 125 MG/2 ML SDV IVPUSH SCH (06:55)
[2019-11-28] MEDS: amLODIPine 10 MG Tab PO SCH (09:30)
[2019-11-28] MEDS: Benzonatate 100 MG Cap PO SCH ×3 (09:30→20:55)
[2019-11-28] MEDS ORDERED: amLODIPine 10 MG Tab PO SCH (09:30)
[2019-11-28] MEDS: Nicotine 21 MG/24 Hr Patch TRDERM SCH (09:30)
[2019-11-28] MEDS: guaiFENesin 600 MG Tab.ER PO SCH ×2 (09:30→20:54)
[2019-11-28] MEDS: Enoxaparin 40 MG/0.4 ML Syringe SUBCUT SCH (09:31)
--- NOTE | 2019-11-28 13:23 | PCM.PN ---
- General Info Date of Service: 11/28/19 Subjective Update: BM 11/26 Eating 100% of regular diet PT recommending home independent Room air since last night Ambulating without assistance Slept so so, had a bad nightmare that didn;t allow him to go back to sleep - Patient Data Vitals - Most Recent: Last Vital Signs Temp 97.9 F 11/28/19 11:33 Pulse 102 H 11/28/19 11:33 Resp 20 11/28/19 11:33 BP 133/84 11/28/19 11:33 Pulse Ox 93 L 11/28/19 12:00 Weight - Most Recent: 91.807 kg - Exam Quality Assessment: DVT Prophylaxis. No: Supplemental Oxygen, Central Line/PICC , Urine Catheter, Skin Breakdown General: Alert, Oriented, Cooperative, No Acute Distress, Mild Distress HEENT: Pupils Equal, Pupils Reactive, EOMI, Mucous Membr. Moist/[place] Neck: Supple, Trachea Midline, No JVD, No Thyromegaly, +2 Carotid Pulse wo Bruit. No: Lymphadenopathy Lungs: Normal Respiratory Effort, Wheezing. No: Crackles, Rales, Rhonchi, Rub, Stridor Cardiovascular: Regular Rate, Regular Rhythm. No: Murmurs, Gallops, Rubs GI/Abdominal Exam: Normal Bowel Sounds, Soft, Non-Tender. No: Distended, Guarding, Rigid, Rebound Back Exam: Normal Inspection, Full Range of Motion. No: CVA Tenderness (L), CVA Tenderness (R), Paraspinal Tenderness, Vertebral Tenderness Extremities: Normal Inspection, Normal Range of Motion, Non-Tender, No Pedal Edema, Normal Capillary Refill Peripheral Pulses: 2+: Radial (L), Radial (R), Dorsalis Pedis (L), Dorsalis Pedis (R) Skin: Warm, Dry, Intact Wound/Incisions: Healing Well Neurological: No New Focal Deficit Psy/Mental Status: Alert Sepsis Event Note - Evaluation Sepsis Screening Result: Sepsis Risk - Problem List & Annotations (1) Acute hypoxemic respiratory failure SNOMED Code(s): 086240125 Code(s): J96.01 - ACUTE RESPIRATORY FAILURE WITH HYPOXIA Status: Acute Current Visit: Yes (2) GERD (gastroesophageal reflux disease) SNOMED Code(s): 767519475 Code(s): K21.9 - GASTRO-ESOPHAGEAL REFLUX DISEASE WITHOUT ESOPHAGITIS Status: Acute Current Visit: Yes (3) Hypertension SNOMED Code(s): 49954032 Code(s): I10 - ESSENTIAL (PRIMARY) HYPERTENSION Status: Acute Current Visit: Yes (4) Bereavement SNOMED Code(s): 25250171 Code(s): Z63.4 - DISAPPEARANCE AND OF FAMILY MEMBER Status: Acute Current Visit: Yes (5) Leukocytosis SNOMED Code(s): 160657827, 258866390 Code(s): D72.829 - ELEVATED WHITE BLOOD CELL COUNT, UNSPECIFIED Status: Acute Current Visit: Yes (6) Chronic kidney disease (CKD), stage III (moderate) SNOMED Code(s): 997436902 Code(s): N18.3 - CHRONIC KIDNEY DISEASE, STAGE 3 (MODERATE) Status: Acute Current Visit: Yes (7) Fever SNOMED Code(s): 391774716 Code(s): R50.9 - FEVER, UNSPECIFIED Status: Acute Current Visit: Yes (8) COPD exacerbation SNOMED Code(s): 696090894 Code(s): J44.1 - CHRONIC OBSTRUCTIVE PULMONARY DISEASE W (ACUTE) EXACERBATION Status: Acute Current Visit: No (9) Tachycardia SNOMED Code(s): 6074627 Code(s): R00.0 - TACHYCARDIA, UNSPECIFIED Status: Acute Current Visit: Yes (10) Pneumonia SNOMED Code(s): 509449791 Code(s): J18.9 - PNEUMONIA, UNSPECIFIED ORGANISM Status: Acute Current Visit: Yes (11) Hypoalbuminemia SNOMED Code(s): 435427507 Code(s): E88.09 - OTH DISORDERS OF PLASMA-PROTEIN METABOLISM, NEC Status: Acute Current Visit: Yes (12) Malnutrition SNOMED Code(s): 41985559 Code(s): E46 - UNSPECIFIED PROTEIN-CALORIE MALNUTRITION Status: Acute Current Visit: Yes (13) Influenza A SNOMED Code(s): 348108828 Code(s): J10.1 - FLU DUE TO OTH IDENT INFLUENZA VIRUS W OTH RESP MANIFEST Status: Acute Current Visit: No - Problem List Review Problem List Initiated/Reviewed/Updated: Yes - Plan Plan:: Bacterial pneumonia superimposed on influenza A infection COPD exacerbation Acute hypoxemic respiratory failure Smoker Worsening SOB x 5 days + fever + leukocytosis--> SatO2 85% on RA--> up to 90% on 2L on admission Has maintained O2 Sat > 92% on 1L WBC improved to 15.21 to 13.59--> still improving, neutrophils down in percentage Influenza A positive Procalcitonin elevated PLAN - DuoNebs q8h - Continue Budesonide, Guaifenesin and Tessalon Perles - Change antibiotics to PO for 1 more day of treatment - Change solumedrol to Medrol dose pack taper Hypertension BP on admission 127/72 BP trend 107-138/74-86 PLAN - Continue amlodipine - PRN hydralazine Chronic kidney disease (CKD), stage III (moderate) Acute kidney injury improved GFR on admission 50--> 43 --> 55 yesterday UO 2024--> 84ml/hr Urine output improved PLAN - Monitor urine output - Renally dosed medications - Avoid nephrotoxic medications - Encourage PO fluid intake Malnutrition Patient endorses decreased oral intake Albumin 3.1 Folic acid and B12 normal Prealbumin level low PLAN - Follow up with dietary recommendations Bereavement in fall Refers he still has a very hard time with it, but is better in comparison Her birthday was recently PLAN - Spiritual care consult PROPHYLAXIS DVT- Lovenox GI- pantoprazole CODE STATUS: FULL CODE DISPOSITION: Patient will remain admitted to the medical floor for oxygen supplementation, IV antibiotics and scheduled RT. Length of stay longer than 96 hours due to suboptimal treatment response, likely d/c in AM. SOCIAL: Is from home alone, in fall Sons live in [place] Independent on ADLs and IADLs
[2019-11-28] MEDS ORDERED: Albuterol/Ipratropium 3.0-0.5 MG/3 ML Neb Soln NEB PRN (18:09)
[2019-11-28] MEDS ORDERED: Azithromycin 250 MG Tab PO SCH (19:30)
[2019-11-28] MEDS: Cefdinir 300 MG Cap PO SCH (20:53)
[2019-11-28] MEDS: LORazepam 0.5 MG Tab PO SCH (20:53)
[2019-11-29] MEDS: Budesonide 0.5 MG/2 ML Neb Susp NEB SCH (05:40)
[2019-11-29] MEDS: Albuterol/Ipratropium 3.0-0.5 MG/3 ML Neb Soln NEB SCH ×2 (05:40→09:05)
[2019-11-29] MEDS: Pantoprazole 40 MG Tab.CR PO SCH (06:57)
[2019-11-29] MEDS: Cefdinir 300 MG Cap PO SCH (08:56)
[2019-11-29] MEDS: Nicotine 21 MG/24 Hr Patch TRDERM SCH (08:57)
[2019-11-29] MEDS: amLODIPine 10 MG Tab PO SCH (08:59)
[2019-11-29] MEDS: Enoxaparin 40 MG/0.4 ML Syringe SUBCUT SCH (08:59)
[2019-11-29] MEDS: guaiFENesin 600 MG Tab.ER PO SCH (08:59)
[2019-11-29] MEDS: Benzonatate 100 MG Cap PO SCH ×2 (08:59→14:25)
--- NOTE | 2019-11-29 12:00 | PCM.DCSUM1 ---
Discharge Summary - Hospital Course HPI Initial Comments: This is a 69 year old male with past medical history of HTN and COPD who comes to the ED complaining of worsening shortness of breath for 5 days As per patient he was in his usual state of health until 5 days ago when he started having intermittent fevers, associated with coughing spells, shortness of breath, chest pain, malaise and anorexia. Initially he tried to " wait it out" to see if it would resolve on its own, however once it didn't he decided to come to the ED for further evaluation. He denies any sick contacts. Did get the flu shot. Received both Pneumovax 23 and Prevnar 13 Not smoked in 2 weeks. - Discharge Data Discharge Date: 11/29/19 Discharge Disposition: Home, Self-Care 01 Condition: Good - Referral to Home Health Primary Care Physician: Eri Reid MD - Discharge Diagnosis/Problem(s) (1) Acute hypoxemic respiratory failure SNOMED Code(s): 906302562 ICD Code: J96.01 - ACUTE RESPIRATORY FAILURE WITH HYPOXIA Status: Acute Current Visit: Yes (2) GERD (gastroesophageal reflux disease) SNOMED Code(s): 844620557 ICD Code: K21.9 - GASTRO-ESOPHAGEAL REFLUX DISEASE WITHOUT ESOPHAGITIS Status: Acute Current Visit: Yes (3) Hypertension SNOMED Code(s): 23232011 ICD Code: I10 - ESSENTIAL (PRIMARY) HYPERTENSION Status: Acute Current Visit: Yes (4) Bereavement SNOMED Code(s): 17646905 ICD Code: Z63.4 - DISAPPEARANCE AND OF FAMILY MEMBER Status: Acute Current Visit: Yes (5) Leukocytosis SNOMED Code(s): 025568536, 037291720 ICD Code: D72.829 - ELEVATED WHITE BLOOD CELL COUNT, UNSPECIFIED Status: Acute Current Visit: Yes (6) Chronic kidney disease (CKD), stage III (moderate) SNOMED Code(s): 051613969 ICD Code: N18.3 - CHRONIC KIDNEY DISEASE, STAGE 3 (MODERATE) Status: Acute Current Visit: Yes (7) Fever SNOMED Code(s): 081745335 ICD Code: R50.9 - FEVER, UNSPECIFIED Status: Acute Current Visit: Yes (8) COPD exacerbation SNOMED Code(s): 581845399 ICD Code: J44.1 - CHRONIC OBSTRUCTIVE PULMONARY DISEASE W (ACUTE) EXACERBATION Status: Acute Current Visit: No (9) Tachycardia SNOMED Code(s): 2216756 ICD Code: R00.0 - TACHYCARDIA, UNSPECIFIED Status: Acute Current Visit: Yes (10) Pneumonia SNOMED Code(s): 975772582 ICD Code: J18.9 - PNEUMONIA, UNSPECIFIED ORGANISM Status: Acute Current Visit: Yes (11) Hypoalbuminemia SNOMED Code(s): 261196363 ICD Code: E88.09 - OTH DISORDERS OF PLASMA-PROTEIN METABOLISM, NEC Status: Acute Current Visit: Yes (12) Malnutrition SNOMED Code(s): 20701961 ICD Code: E46 - UNSPECIFIED PROTEIN-CALORIE MALNUTRITION Status: Acute Current Visit: Yes (13) Influenza A SNOMED Code(s): 005046951 ICD Code: J10.1 - FLU DUE TO OTH IDENT INFLUENZA VIRUS W OTH RESP MANIFEST Status: Acute Current Visit: No - Patient Summary/Data Consults: Consultations 11/24/19 19:16 OT Evaluation and Treatment [CONS] Routine PT Evaluation and Treatment [CONS] Routine Hospital Course: Day of admission - Patient was found to be hypoxemic (O2 sat 85% on RA) in ED for which he required placement of O2 supplementation via nasal cannula 2L to maintain O2 around 90% - Started on scheduled DuoNeb q2h, Pulmicort BID, Solumedrol, Tessalon Perles and guaifenesin - Procalcitonin ordered - WBC 11K and PaO2 57 on ABG - Acute kidney injury secondary to volume depletion with GFR of 50 Day 1 - Required increase of O2 supplementation to 3L to maintain O2 sat at goal - WBC improved - Urine output improved as well as GFR - Procalcitonin elevated - Started on Rocephin and Azithromycin Day 2-5 - Respiratory panel + for Influenza A - Completed 5 days of double antibiotic coverage - Able to be tapered of oxygen supplementation, off nasal cannula last 2 days of admission - Procalcitonin improved - Patient Instructions Diet: Usual Diet as Tolerated Activity: As Tolerated - Discharge Plan *PRESCRIPTION DRUG MONITORING PROGRAM REVIEWED*: No *COPY OF PRESCRIPTION DRUG MONITORING REPORT IN PATIENT JUSTIN: No Prescriptions/Med Rec: Levalbuterol Tartrate [Xopenex Hfa] 90 mcg IH Q4HR #3 hfa.aer.ad Albuterol/Ipratropium [DuoNeb 3.0-0.5 MG/3 ML] 3 ml NEB Q8HR #15 neb Benzonatate [Tessalon Perle] 100 mg PO TID #15 capsule Budesonide [Pulmicort] 0.5 mg NEB BIDRT #10 neb Fluticasone/Salmeterol [Advair HFA 230-21 MCG] 2 puff INH BID #30 inhaler guaiFENesin [Mucinex] 600 mg PO BID #10 tab.er Nicotine [Habitrol] 21 mg TRDERM DAILY #30 patch Home Medications: Home Meds Omeprazole 20 mg PO DAILY 11/24/19 [History] Acetaminophen [Tylenol Extra Strength] 500 mg PO Q12HR PRN 11/28/19 [History] amLODIPine Besylate [Amlodipine Besylate] 10 mg PO DAILY 11/28/19 [History] Albuterol/Ipratropium [DuoNeb 3.0-0.5 MG/3 ML] 3 ml NEB Q8HR #15 neb 11/29/19 [ Rx] Benzonatate [Tessalon Perle] 100 mg PO TID #15 capsule 11/29/19 [Rx] Budesonide [Pulmicort] 0.5 mg NEB BIDRT #10 neb 11/29/19 [Rx] Fluticasone/Salmeterol [Advair HFA 230-21 MCG] 2 puff INH BID #30 inhaler [Rx] Levalbuterol Tartrate [Xopenex Hfa] 90 mcg IH Q4HR #3 hfa.aer.ad 11/29/19 [Rx] Nicotine [Habitrol] 21 mg TRDERM DAILY #30 patch 11/29/19 [Rx] guaiFENesin [Mucinex] 600 mg PO BID #10 tab.er 11/29/19 [Rx] Oxygen Therapy Mode: Room Air Patient Handouts: Chronic Obstructive Pulmonary Disease Exacerbation, Sepsis, Diagnosis, Adult, Steps to Quit Smoking Forms: ED Department Discharge Referrals: Eri Reid MD [Primary Care Provider] - (Ask Dr Reid if you should have a lung doctor referral.) - Discharge Summary/Plan Comment DC Time >30 min.: Yes - General Info Date of Service: 11/29/19 Subjective Update: Feeling great States he is back at baseline Slept well Tolerated diet Ambulating without assistance No requirements of O2 supplementation BM 11/26 - Patient Data Vitals - Most Recent: Last Vital Signs Temp 97.7 F 11/29/19 04:13 Pulse 112 H 11/29/19 08:58 Resp 16 11/29/19 08:58 BP 110/63 11/29/19 08:59 Pulse Ox 93 L 11/29/19 09:05 Weight - Most Recent: 91.807 kg - Exam Quality Assessment: Denies: Supplemental Oxygen, Central Line/PICC, Urine Catheter, Skin Breakdown General: Reports: Alert, Oriented, Cooperative, No Acute Distress HEENT: Reports: Pupils Equal, Pupils Reactive, EOMI, Mucous Membr. Moist/[place] Neck: Reports: Supple, Trachea Midline, No JVD, No Thyromegaly, +2 Carotid Pulse wo Bruit. Denies: Lymphadenopathy Lungs: Reports: Normal Respiratory Effort, Wheezing (interval improvement). Denies: Crackles, Rales, Rhonchi, Rub, Stridor Cardiovascular: Reports: Regular Rate, Regular Rhythm. Denies: Murmurs, Gallops , Rubs GI/Abdominal Exam: Normal Bowel Sounds, Soft, Non-Tender, No Organomegaly. No: Distended, Guarding, Rigid, Rebound Back Exam: Reports: Normal Inspection, Full Range of Motion. Denies: CVA Tenderness (L), CVA Tenderness (R), Paraspinal Tenderness, Vertebral Tenderness Extremities: Normal Inspection, Normal Range of Motion, Non-Tender, No Pedal Edema, Normal Capillary Refill Skin: Reports: Warm, Dry, Intact Neurological: Reports: No New Focal Deficit Psy/Mental Status: Reports: Alert
[2019-11-29 12:01] VITALS: BP 109/81; PULSE 109
== END 2019-11-29 15:10 | disposition home or self-care (01) | DRG 193 ==
LOC: JD.ED 15:19 → JD.MS 20:06
PROVIDERS: ADMIT Internal Medicine; ATTEND Internal Medicine
DX: J10.08 Influenza due to other identified influenza virus with other specified pneumonia (principal); R09.02 Hypoxemia; J96.01 Acute respiratory failure with hypoxia; I10 Essential (primary) hypertension; E87.1 Hypo-osmolality and hyponatremia; E46 Unspecified protein-calorie malnutrition; F17.200 Nicotine dependence, unspecified, uncomplicated; N17.9 Acute kidney failure, unspecified; J44.1 Chronic obstructive pulmonary disease with (acute) exacerbation; J44.0 Chronic obstructive pulmonary disease with (acute) lower respiratory infection; M54.9 Dorsalgia, unspecified; G89.29 Other chronic pain; G43.909 Migraine, unspecified, not intractable, without status migrainosus; H54.7 Unspecified visual loss; F17.210 Nicotine dependence, cigarettes, uncomplicated; K21.9 Gastro-esophageal reflux disease without esophagitis; N18.3 Chronic kidney disease, stage 3 (moderate); I12.9 Hypertensive chronic kidney disease with stage 1 through stage 4 chronic kidney disease, or unspecified chronic kidney disease; R00.0 Tachycardia, unspecified; E88.09 Other disorders of plasma-protein metabolism, not elsewhere classified; Z99.81 Dependence on supplemental oxygen; Z79.51 Long term (current) use of inhaled steroids; Z79.899 Other long term (current) drug therapy; Z68.26 Body mass index [BMI] 26.0-26.9, adult
CPT/HCPCS: 36415; 36600; 71046; 80053; 82803; 83605; 84145; 85007; 85027; 86738; 87804 ×2; 94640 ×2; 99285; A9270; 80048; 82607; 82746; 83735; 84100; 84134; 85025; 87070; 87205; 87486; 87581; 87632; 87798; 87899; 94667; 94668; 94761; 97161-GP; 97165-GO; 99284; J0456; J0696; J1650; J2930; J7050; J7620-GY

== ENCOUNTER 2024-04-04 12:22 | Emergency (ER) | payer MEDICARE, OTHER ==
[2024-04-04] MEDS ORDERED: Sodium Chloride 0.9% 10 ML Syringe FLUSH PRN (12:39)
[2024-04-04 12:53] LABS: BASOPHILS PERCENT AUTO 0.5 % (0.0-1.0); EOSINOPHILS ABSOLUTE AUTO 0.1 K/mm3 (0.0-0.4); EOSINOPHILS PERCENT AUTO 1.4 % (0.0-6.0); HEMATOCRIT 52.8 % (42.0-52.0); HEMOGLOBIN 16.5 gm/dl (14.0-18.0); IMMATURE GRAN ABSOLUTE AUTO 0.03 K/mm3 (0.00-0.05); IMMATURE GRAN PERCENT AUTO 0.3 % (0.0-0.4); LYMPHOCYTES ABSOLUTE AUTO 1.1 K/mm3 (1.0-4.8); LYMPHOCYTES PERCENT AUTO 13.3 % (24.0-44.0); MEAN CORPUSCULAR HEMOGLOBIN 27.3 pg (28.0-32.0); MEAN CORPUSCULAR HGB CONC 31.3 g/dl (32.0-36.0); MEAN CORPUSCULAR VOLUME 87.3 fl (83.0-99.0); MEAN PLATELET VOLUME 10.3 fl (9.4-12.4); MONOCYTES ABSOLUTE AUTO 0.9 K/mm3 (0.0-0.8); MONOCYTES PERCENT AUTO 10.5 % (0.0-8.0); NEUTROPHILS ABSOLUTE AUTO 6.4 K/mm3 (1.8-7.7); PLATELET COUNT,PLT 175 K/mm3 (150-400); RED BLOOD CELL COUNT 6.05 M/mm3 (4.52-5.90)
[2024-04-04] MEDS: Albuterol/Ipratropium 3.0-0.5 MG/3 ML Neb Soln NEB ONE (13:22)
[2024-04-04 13:24] LABS: A/G RATIO 0.9 (1-2); ALBUMIN 3.5 g/dl (3.4-5.0); ANION GAP 12.3 (5-15); BILIRUBIN TOTAL 0.7 mg/dL (0.2-1.0); BUN/CREATININE RATIO 16.4 (14-18); C-REACTIVE PROTEIN 0.19 mg/dL (<0.30); CALCIUM 9.2 mg/dL (8.5-10.1); CREATININE 1.1 mg/dL (0.7-1.3); EST CRCL DRUG DOSING (CG) 68.6 mL/min; POTASSIUM,K 4.3 mEq/L (3.5-5.1); PROTEIN TOTAL,TP 7.3 g/dl (6.4-8.2)
[2024-04-04 13:59] LABS: CORONAVIRUS COVID-19 NAA NEGATIVE (NEGATIVE); INFLUENZA A NAA NEGATIVE (NEGATIVE); RESPIRATORY SYNCYTIAL VIR NAA NEGATIVE (NEGATIVE)
[2024-04-04] MEDS: methylPREDNISolone Sodium Succinate 125 MG/2 ML SDV IVPUSH ONE (14:02)
[2024-04-04] MEDS: Azithromycin 250 MG Tab PO ONE (16:34)
[2024-04-04 17:47] VITALS: BP 126/75; PULSE 84
== END 2024-04-04 16:42 | disposition home or self-care (01) ==
LOC: JD.ED 12:22
DX: J44.9 Chronic obstructive pulmonary disease, unspecified (principal); I10 Essential (primary) hypertension; Z90.49 Acquired absence of other specified parts of digestive tract; Z79.899 Other long term (current) drug therapy
CPT/HCPCS: 0241U; 36415; 71046; 80053; 83880; 84484; 85025; 85379; 86140; 93005; 94640; 96374; 99285; A9270; J2919; J7620-GY

== ENCOUNTER 2024-11-18 11:15 | Emergency (ER) | payer MEDICARE, OTHER ==
[2024-11-18] MEDS ORDERED: Sodium Chloride 0.9% 10 ML Syringe FLUSH PRN (12:18)
[2024-11-18 12:40] LABS: BASOPHILS PERCENT AUTO 0.3 % (0.0-1.0); EOSINOPHILS ABSOLUTE AUTO 0.2 K/mm3 (0.0-0.4); EOSINOPHILS PERCENT AUTO 1.5 % (0.0-6.0); IMMATURE GRAN ABSOLUTE AUTO 0.04 K/mm3 (0.00-0.05); IMMATURE GRAN PERCENT AUTO 0.4 % (0.0-0.4); LYMPHOCYTES PERCENT AUTO 9.2 % (24.0-44.0); MEAN CORPUSCULAR HGB CONC 32.3 g/dl (32.0-36.0); MEAN PLATELET VOLUME 10.3 fl (9.4-12.4); MONOCYTES ABSOLUTE AUTO 0.8 K/mm3 (0.0-0.8); MONOCYTES PERCENT AUTO 7.4 % (0.0-8.0); NEUTROPHILS ABSOLUTE AUTO 8.4 K/mm3 (1.8-7.7); NEUTROPHILS PERCENT AUTO 81.2 % (41.0-71.0); PLATELET COUNT,PLT 185 K/mm3 (150-400); RED BLOOD CELL COUNT 4.89 M/mm3 (4.52-5.90); WHITE BLOOD CELL COUNT,WBC 10.34 K/mm3 (3.9-11.3)
[2024-11-18 12:44] LABS: HEMOGLOBIN 14.2 gm/dl (14.0-18.0)
[2024-11-18 13:15] LABS: A/G RATIO 0.9 (1-2); ALBUMIN 3.6 g/dl (3.4-5.0); ANION GAP 6.5 (5-15); BILIRUBIN TOTAL 0.6 mg/dL (0.2-1.0); BUN/CREATININE RATIO 18.2 (14-18); CALCIUM 9.6 mg/dL (8.5-10.1); CREATININE 1.1 mg/dL (0.7-1.3); EST CRCL DRUG DOSING (CG) 67.59 mL/min; POTASSIUM,K 3.5 mEq/L (3.5-5.1); PROTEIN TOTAL,TP 7.8 g/dl (6.4-8.2)
[2024-11-18] MEDS: Sodium Chloride 0.9% 10 ML Syringe FLUSH PRN (13:28)
[2024-11-18] MEDS: Iopamidol 612 MG/ML 100 ML Bottle IVPUSH ONE (13:28)
[2024-11-18] MEDS: Sodium Chloride 0.9% 500 ML IV ONE (13:35)
[2024-11-18] MEDS ORDERED: Dexamethasone 6 MG TABLET PO ONE (14:25)
[2024-11-18] MEDS ORDERED: Amoxicillin/Clavulanate K 875-125 MG Tab PO ONE (14:26)
[2024-11-18] MEDS ORDERED: Dexamethasone 4 MG Tab PO ONE (14:30)
[2024-11-18] MEDS: Amoxicillin/Clavulanate K 875-125 MG Tab PO ONE (15:13)
[2024-11-18] MEDS: Dexamethasone 4 MG/ML 5 ML MDV IV ONE (15:13)
[2024-11-18 15:21] VITALS: BP 125/89; PULSE 71
== END 2024-11-18 15:23 | disposition home or self-care (01) ==
LOC: JD.ED 11:15
DX: K12.2 Cellulitis and abscess of mouth (principal); I10 Essential (primary) hypertension; J44.89 Other specified chronic obstructive pulmonary disease; Z90.49 Acquired absence of other specified parts of digestive tract; Z79.899 Other long term (current) drug therapy
CPT/HCPCS: 36415; 70491; 80053; 83605; 85025; 87040; 96361; 96374; 99284; A9270; J1100; J7030; Q9967

== ENCOUNTER 2025-08-16 16:30 | Emergency (ER) | payer OTHER ==
[2025-08-16 16:58] VITALS: PULSE 87
[2025-08-16 18:19] VITALS: BP 109/73
== END 2025-08-16 18:05 | disposition home or self-care (01) ==
LOC: JD.ED 16:30
DX: Z13.6 Encounter for screening for cardiovascular disorders (principal); I10 Essential (primary) hypertension; J44.89 Other specified chronic obstructive pulmonary disease; F17.200 Nicotine dependence, unspecified, uncomplicated; Z90.49 Acquired absence of other specified parts of digestive tract; Z79.899 Other long term (current) drug therapy
CPT/HCPCS: 93005; 99283